=== PATIENT | female | born 1990 | race Caucasian/White ===

== ENCOUNTER 2018-09-15 01:32 | Inpatient (IN) | payer MEDICAID ==
[~2018-09-15 01:32] MED LIST: Carboprost Tromethamine 250 MCG/1 ML Amp IM PRN; Lactated Ringers 1,000 ML IV SCH; Lidocaine 1% 30 ML SDV INJECT PRN; Methylergonovine 0.2 MG/1 ML Amp IM PRN; Misoprostol 25 MCG (1/4 of 100 MCG) Tab VAG PRN; Misoprostol 400 MCG (4 X 100 MCG TAB) RECTAL PRN; Ondansetron 4 MG/2 ML SDV IV PRN; Oxytocin/Normal Saline 30 UNIT/500 ML BAG IV SCH; Sodium Chloride 0.9% 10 ML Syringe FLUSH PRN; Tranexamic Acid 1,000 MG in Sodium Chloride 0.9% 100 ML IV PRN
[2018-09-15] MEDS ORDERED: Nalbuphine 10 MG/1 ML Vial IM PRN (12:00)
[2018-09-15] MEDS: Lactated Ringers 1,000 ML IV SCH ×2 (12:00→19:21)
[2018-09-15] MEDS ORDERED: Penicillin G Potassium 5 MILLUNITS in Sodium Chloride 0.9% 100 ML IV ONE (12:00)
[2018-09-15] MEDS: Penicillin G Potassium 3 MILLUNITS in Sodium Chloride 0.9% 100 ML IV SCH ×2 (16:29→20:03)
[2018-09-15] MEDS ORDERED: fentaNYL 100 MCG/2 ML SDV IVPUSH PRN ×2 (17:45→18:51)
[2018-09-15] MEDS ORDERED: Oxytocin 10 Units/1 ML SDV IM PRN (23:06)
[2018-09-15] MEDS ORDERED: Misoprostol 400 MCG (4 X 100 MCG TAB) RECTAL PRN (23:06)
[2018-09-15] MEDS ORDERED: Tranexamic Acid 1,000 MG in Sodium Chloride 0.9% 100 ML IV PRN (23:06)
[2018-09-15] MEDS ORDERED: Carboprost Tromethamine 250 MCG/1 ML Amp IM PRN (23:06)
--- NOTE | 2018-09-16 01:45 | DEL ---
DATE: 09/15/2018 PREPROCEDRE DIAGNOSES: 1. Intrauterine , 40 weeks 1-day gestation. 2. History of macrosomic infant. 3. Group B streptococcus positive. 4. Blood type O positive and human immunodeficiency virus negative per the patient's report. 5. Induction of labor with Cytotec. 6. 3, para 1-0-1-1. POSTPROCEDURE DIAGNOSES: 1. Intrauterine , 40 weeks 1-day gestation. 2. History of macrosomic . 3. Group B streptococcus positive. 4. Blood type O positive and human immunodeficiency virus negative per the patient's report. 5. Induction of labor with Cytotec. 6. 3, now para 2-0-1-2. 7. Status post spontaneous vaginal delivery with second-degree perineal laceration, repaired. BRIEF HISTORY: The patient is a 28-year-old female admitted to Labor and Delivery with the above diagnoses for induction of labor with Cytotec due to group B strep positive and macrosomic infant history. The first Cytotec was placed at 2:15 a.m. Contractions were recorded between 1 minute and 5 minutes thereafter that slowly continued in strength and increased in frequency. Pitocin was started at 12:56 p.m. At 2042 hours, SROM occurred and the patient was complete. The patient pushed for 6 minutes. PROCEDURE IN DETAIL: The patient was in dorsal lithotomy position, delivered a viable female over perineum in the OA position. After the 's head delivered, remainder of the body came readily thereafter. Infant was dried, stimulated, and bulb suctioned. Baby was then placed upon mother's abdomen. Per parents' wishes, the 3-vessel umbilical cord clamping was delayed. The cord was clamped with ample time after the cord stopped pulsating. The cord was cut by father of the baby. The placenta was then delivered with gentle cord traction and concomitant uterine massage, inspected, and intact. The vagina and perineal areas were then inspected. A second-degree perineal laceration was noted. This was repaired with 3-0 Vicryl sutures. Lidocaine was first administered to the lacerated area. This was used for appropriate pain control. It was then the laceration was repaired. It was then inspected and deemed to be hemostatic. The patient tolerated the procedure well. The patient received Nubain once and fentanyl twice for pain management. She also received 3 doses of penicillin prophylactically for group B strep treatment. COMPLICATIONS: None. ESTIMATED BLOOD LOSS: 350 mL. FINDINGS: 1. Viable term female infant. 2. scores of 8 and 9 at 1 minute and 5 minutes respectively. 3. weighed 4030 g or 8 pounds 14 ounces. DISPOSITION: Mother and baby will stay in room to initiate bonding. Continue and [id number] as they wish. DELIVERY NOTE: Delivery was performed by myself and Dr. Mee Silva. Delivery note is under advisement of Dr. Mee Silva. Patient seen and examined. Agree with note as scribed on my behalf by Aaliyah Willett MS3. -[employer] operator 09/16/182014 MODL /[id number] MTDD
--- NOTE | 2018-09-16 23:10 | DISCH ---
ADMITTING DIAGNOSES: 1. Intrauterine , 40 weeks 1 day gestation. 2. History of macrosomic . 3. Group B Streptococcus positive. 4. Blood type O positive and human immunodeficiency virus negative per the patient's report. 5. Induction of labor with Cytotec. 6. 3, para 1-0-0-1. DISCHARGE DIAGNOSES: 1. Intrauterine , 40 weeks 1 day gestation. 2. Status post spontaneous vaginal delivery with second-degree perineal laceration, repaired. 3. 3, now para 2-0-1-2. 4. Group B Streptococcus positive. 5. Blood type O positive and human immunodeficiency virus negative per the patient's report. 6. Induction of labor with Cytotec. HISTORY OF PRESENT ILLNESS: The patient is a 28-year-old female admitted to Labor and Delivery with the above diagnoses for induction of labor with Cytotec due to GBS positive swabs and history of macrosomic infant. After placement of Cytotec, the patient progressed through labor. Pitocin was started at 12:56 p.m. At 2042 hours, SROM occurred and the patient was complete. The patient pushed for a total of 6 minutes before spontaneous vaginal delivery of term female . Stage I of labor was 6 hours total, stage II of labor was 6 minutes total, and stage III of labor was 1 minute in total. The patient experienced a second-degree perineal laceration that was repaired after delivery of placenta. HOSPITAL COURSE: Good. Brief. The patient prefers to be discharged as soon as possible. Agrees to remain until 24 hours post delivery. Course has been uncomplicated. The patient is ambulating, tolerating general diet, voiding, and passing flatus. She reports tailbone soreness, but is not concerned as this is expected. The patient is also preferring to take own home medications instead of hospital-provided medications. The patient is well. Family has no concerns at this time. Please see delivery note for details. DISCHARGE CONDITION: Good. DISCHARGE PHYSICAL EXAMINATION: Vital Signs: Temperature 98.7 degrees Fahrenheit, HR 76 bpm, BP 115/67, RR 16 breaths per minute, and oxygen saturation 100% on room air. General: Awake, alert, and cooperative, in no acute distress. HEENT: Grossly normal. Pulmonary: Lungs are clear to auscultation bilaterally. Cardiovascular: Regular rate and rhythm. Abdomen: Soft, nontender. Normoactive bowel sounds. Fundus is firm and palpated 4 cm below umbilicus. Extremities: Trace edema in ankles and fingers bilaterally. No tenderness to calf palpation. Neurologic: Grossly normal. LABORATORY DATA: Pending. DISCHARGE MEDICATIONS: None prescribed. The patient will continue her vitamins and home medications. DISPOSITION: Home with family. FOLLOWUP: The patient is advised to follow up in 6 weeks for care. Advised to call the clinic and schedule with Dr. Mee Silva. The patient was seen and evaluated today by myself and Dr. Mee Silva. Discharge assessment is under advisement of Dr. Silva. Patient seen and examined. Agree with note as scribed on my behalf by Aaliyah Willett MS3. -[facility] 09/17/18 0515. MODL /[id number] MTDD
== END 2018-09-16 23:00 | disposition home or self-care (01) | DRG 807 ==
LOC: DL.OB 01:32 → OBSVTOIN 20:49
PROVIDERS: ADMIT Family Medicine; ATTEND Family Medicine
PROC: 10E0XZZ Delivery of Products of Conception, External Approach (ICD-10-PCS; principal; 2018-09-15)
PROC: 0KQM0ZZ Repair Perineum Muscle, Open Approach (ICD-10-PCS; 2018-09-15)
PROC: 3E0P7VZ Introduction of Hormone into Female Reproductive, Via Natural or Artificial Opening (ICD-10-PCS; 2018-09-15)
PROC: 3E033VJ Introduction of Other Hormone into Peripheral Vein, Percutaneous Approach (ICD-10-PCS; 2018-09-15)
DX: O48.0 Post-term pregnancy (principal); Z37.0 Single live birth; O70.1 Second degree perineal laceration during delivery; O99.824 Streptococcus B carrier state complicating childbirth; Z3A.40 40 weeks gestation of pregnancy; O36.63X0 Maternal care for excessive fetal growth, third trimester, not applicable or unspecified
CPT/HCPCS: 36415; 59409; 85027; A9270-GY; J2001; J2300; J2540; J2590; J3010; J7050; J7120